=== PATIENT | female | born 1970 | race Caucasian/White ===

== ENCOUNTER → 2021-02-20 | Outpatient (CLI) | payer BC, MEDICAID ==
[~2021-02-20] MED LIST: ACHD5005 PO; CYCL10TA9 PO; DOCU100C37 PO; HYDR-34 PO; IBUP-1773 PO; METR500T PO; SIME80TA16 PO
--- NOTE | 2021-02-20 17:36 | Diagnostic Imaging Report ---
PROCEDURE: MRI right joint lower extremity without contrast. TECHNIQUE: Multiplanar, multisequence non contrast-enhanced MRI of the right lower extremity was accomplished. INDICATION: Right knee pain. COMPARISON: None FINDINGS: No acute fracture or dislocation is seen in the right knee. Alignment appears normal. There is a small right knee joint effusion. There is mild irregularity of the patellofemoral articular cartilage with mild thinning. The cartilage in the medial and lateral compartments demonstrates mild thinning. There is a complete radial tear of the posterior horn of the medial meniscus, near the root. The lateral meniscus appears intact. The anterior posterior cruciate ligaments are intact. The medial collateral ligament is intact. The lateral collateral ligamentous complex is intact. The extensor mechanism is intact. The medial and lateral retinacula are intact. Soft tissues about the right knee demonstrate no acute abnormality. IMPRESSION: 1. Complete radial tear of the posterior horn of the medial meniscus. 2. Small right knee joint effusion. Dictated by: Dictated on workstation # [id number]
== END ==
LOC: RAD 15:30
PROVIDERS: ATTEND Nurse Practitioner
DX: S83.241A Other tear of medial meniscus, current injury, right knee, initial encounter (principal); X58.XXXA Exposure to other specified factors, initial encounter
CPT/HCPCS: 73721

== ENCOUNTER → 2021-06-12 | Outpatient (CLI) | payer BC ==
--- NOTE | 2021-06-12 11:13 | Diagnostic Imaging Report ---
PROCEDURE: MRI right joint lower extremity without contrast. TECHNIQUE: Multiplanar, multisequence non contrast-enhanced MRI of the right lower extremity was accomplished. INDICATION: Knee pain prior surgery in March of 2021. EXAMINATION: Right knee MRI without contrast 06/12/2021. COMPARISON: 02/20/2021 FINDINGS: There is diffuse abnormal T2 hyperintensity throughout the medial tibial plateau with a transverse hypointense line in the mid aspect of the medial tibial plateau consistent with an insufficiency or stress fracture. No depression or displaced fractures appreciated. This is well seen on coronal images 16 through 19. Other scattered areas of T2 hyperintensity likely areas of contusion within the medial femoral condyle. The extensor mechanism, ACL and PCL appear intact. Lateral collateral ligamentous complex and MCL intact. The lateral meniscus is intact. Again noted is abnormal signal intensity throughout the posterior horn of the medial meniscus some of which could be due to a partial meniscectomy. The residual tear or re-tear, however is suspected. There is moderate thinning of cartilage in the medial joint space with mild thinning of cartilage laterally. Mild thinning of cartilage overlying the lateral patellar facet is also noted. There is a moderate joint effusion. There is a slitlike Calero cyst. IMPRESSION: 1. New stress or insufficiency fracture within the medial tibial plateau with surrounding bone marrow edema noted. T2 hyperintensity in the medial femoral condyle could be reactive change or due to bone contusion. 2. Postoperative changes within the posterior horn of the medial meniscus with a small re-tear or residual tear not excluded. Lateral meniscus intact. 3. Tricompartmental degenerative disease. Dictated by: Dictated on workstation # [id number]
== END ==
LOC: RAD 06-01 16:15
PROVIDERS: ATTEND Orthopaedic Surgery
DX: M17.11 Unilateral primary osteoarthritis, right knee (principal); M23.91 Unspecified internal derangement of right knee; Z98.890 Other specified postprocedural states
CPT/HCPCS: 73721